=== PATIENT | female | born 1995 | race Caucasian/White ===

== ENCOUNTER 2019-10-20 05:01 | Emergency (ER) | payer OTHER ==
--- NOTE | 2019-10-20 05:34 | ED ---
URI HPI - General Chief Complaint: Upper Respiratory Infection Stated Complaint: coughing up blood Time Seen by Provider: 10/20/19 05:19 Source: patient Mode of arrival: ambulatory Limitations: no limitations - History of Present Illness Initial Comments: This patient is 24-year-old woman who presents to be evaluated for hemoptysis. The patient states that she "always has some congestion and cough," but that tonight she noticed that there was a slight tinge of blood with some sputum, that is otherwise clear to white. Patient denies fever or chills. No dyspnea. No chest pain. No leg pain or swelling. No history of blood clot. MD Complaint: cough, nasal congestion -: hour(s) Severity scale (1-10): 0 Improves With: nothing Worsens With: nothing Associated Symptoms: cough Treatments Prior to Arrival: none - Related Data Previous Rx's Medication Instructions Recorded Albuterol Inhaler [Ventolin Hfa 2 puff INHALATION RT-QID #1 inhaler 10/20/19 Inhaler] Allergies Allergy/AdvReac Type Severity Reaction Status Date / Time sumatriptan AdvReac Unknown Verified 10/20/19 06:28 Review of Systems ROS Statement: Those systems with pertinent positive or pertinent negative responses have been documented in the HPI. ROS Other: All systems not noted in ROS Statement are negative. Constitutional: Denies: fever, chills ENT: Reports: congestion. Denies: ear pain, throat pain Respiratory: Reports: cough, hemoptysis. Denies: dyspnea, wheezes Cardiovascular: Denies: chest pain, palpitations, edema, syncope Gastrointestinal: Denies: abdominal pain, nausea, vomiting Genitourinary: Denies: dysuria, hematuria Musculoskeletal: Denies: back pain Skin: Denies: rash Neurological: Denies: headache Past Medical History Additional Past Medical History / Comment(s): TBI, rapid heart rate History of Any Multi-Drug Resistant Organisms: None Reported Past Surgical History: No Surgical Hx Reported Past Psychological History: No Psychological Hx Reported Smoking Status: Never smoker Past Alcohol Use History: Rare Past Drug Use History: None Reported General Exam Limitations: no limitations General appearance: alert, in no apparent distress Head exam: Present: atraumatic, normocephalic Eye exam: Present: normal appearance. Absent: scleral icterus, conjunctival injection Neck exam: Present: normal inspection Respiratory exam: Present: wheezes. Absent: respiratory distress, rales, rhonchi, stridor, accessory muscle use, decreased breath sounds, prolonged expiratory Cardiovascular Exam: Present: normal rhythm, tachycardia (Rate 102 at my exam), normal heart sounds. Absent: systolic murmur, diastolic murmur, rubs, gallop GI/Abdominal exam: Present: soft. Absent: distended, tenderness, guarding, rebound, rigid, mass Extremities exam: Present: normal inspection, normal capillary refill. Absent: pedal edema, calf tenderness Back exam: Present: normal inspection. Absent: CVA tenderness (R), CVA tenderness (L) Neurological exam: Present: alert Skin exam: Present: warm, dry, intact, normal color. Absent: rash Course Vital Signs 10/20/19 10/20/19 05:06 06:31 Temperature 98.1 F 98.0 F Pulse Rate 129 H 96 Respiratory 17 18 Rate Blood Pressure 155/79 113/68 O2 Sat by Pulse 97 99 Oximetry Medical Decision Making - Lab Data Result diagrams: 10/20/19 05:20 10/20/19 05:20 Lab Results 10/20/19 10/20/19 10/20/19 Range/Units 05:20 05:20 05:20 WBC 12.3 H (3.8-10.6) k/uL RBC 4.21 (3.80-5.40) m/uL Hgb 13.1 (11.4-16.0) gm/dL Hct 40.1 (34.0-46.0) % MCV 95.1 (80.0-100.0) fL MCH 31.0 (25.0-35.0) pg MCHC 32.6 (31.0-37.0) g/dL RDW 12.3 (11.5-15.5) % Plt Count 348 (150-450) k/uL Neutrophils % 52 % Lymphocytes % 37 % Monocytes % 7 % Eosinophils % 1 % Basophils % 1 % Neutrophils # 6.3 (1.3-7.7) k/uL Lymphocytes # 4.5 (1.0-4.8) k/uL Monocytes # 0.9 (0-1.0) k/uL Eosinophils # 0.2 (0-0.7) k/uL Basophils # 0.1 (0-0.2) k/uL D-Dimer 0.33 (<0.60) mg/L FEU Sodium 140 (137-145) mmol/L Potassium 4.1 (3.5-5.1) mmol/L Chloride 106 (98-107) mmol/L Carbon Dioxide 22 (22-30) mmol/L Anion Gap 12 mmol/L BUN 10 (7-17) mg/dL Creatinine 0.75 (0.52-1.04) mg/dL Est GFR (CKD-EPI)AfAm >90 (>60 ml/min/1.73 sqM) Est GFR (CKD-EPI)NonAf >90 (>60 ml/min/1.73 sqM) Glucose 98 (74-99) mg/dL Calcium 9.4 (8.4-10.2) mg/dL Urine HCG, Qual (Not Detectd) 10/20/19 Range/Units 05:54 WBC (3.8-10.6) k/uL RBC (3.80-5.40) m/uL Hgb (11.4-16.0) gm/dL Hct (34.0-46.0) % MCV (80.0-100.0) fL MCH (25.0-35.0) pg MCHC (31.0-37.0) g/dL RDW (11.5-15.5) % Plt Count (150-450) k/uL Neutrophils % % Lymphocytes % % Monocytes % % Eosinophils % % Basophils % % Neutrophils # (1.3-7.7) k/uL Lymphocytes # (1.0-4.8) k/uL Monocytes # (0-1.0) k/uL Eosinophils # (0-0.7) k/uL Basophils # (0-0.2) k/uL D-Dimer (<0.60) mg/L FEU Sodium (137-145) mmol/L Potassium (3.5-5.1) mmol/L Chloride (98-107) mmol/L Carbon Dioxide (22-30) mmol/L Anion Gap mmol/L BUN (7-17) mg/dL Creatinine (0.52-1.04) mg/dL Est GFR (CKD-EPI)AfAm (>60 ml/min/1.73 sqM) Est GFR (CKD-EPI)NonAf (>60 ml/min/1.73 sqM) Glucose (74-99) mg/dL Calcium (8.4-10.2) mg/dL Urine HCG, Qual Not Detected (Not Detectd) - EKG Data -: EKG Interpreted by Me EKG shows normal: sinus rhythm, axis (Normal), intervals (Normal), QRS complexes (Normal), ST-T waves (Normal) Rate: tachycardia (Rate approximately 102 BPM) Disposition Clinical Impression: Bronchitis Disposition: HOME SELF-CARE Condition: Good Instructions (If sedation given, give patient instructions): Acute Bronchitis (ED) Prescriptions: Albuterol Inhaler [Ventolin Hfa Inhaler] 2 puff INHALATION RT-QID #1 inhaler Is patient prescribed a controlled substance at d/c from ED?: No Referrals: Lela Day DO [Primary Care Provider] - 1-2 days
[2019-10-20] MEDS ORDERED: ALBUTEROL NEBULIZED 2.5 MG/3 ML INHALATION ONE (06:21)
[2019-10-20 06:30] LABS: Basophils # (A) 0.1 k/uL (0-0.2); Basophils % (A) 1 %; Eosinophils # (A) 0.2 k/uL (0-0.7); Eosinophils % (A) 1 %; HCT 40.1 % (34.0-46.0); HGB 13.1 gm/dL (11.4-16.0); Lymphocytes # (A) 4.5 k/uL (1.0-4.8); Lymphocytes % (A) 37 %; MCHC 32.6 g/dL (31.0-37.0); MCV 95.1 fL (80.0-100.0); Mean Platelet Volume 8.4; Monocytes # (A) 0.9 k/uL (0-1.0); Monocytes % (A) 7 %; Neutrophils # (A) 6.3 k/uL (1.3-7.7); Neutrophils % (A) 52 %; Platelet Count 348 k/uL (150-450); RBC 4.21 m/uL (3.80-5.40); RDW 12.3 % (11.5-15.5); WBC 12.3 k/uL (3.8-10.6)
[2019-10-20 06:31] VITALS: BP 113/68; RESP 18; TEMP 98
--- NOTE | 2019-10-20 06:33 | XR ---
EXAM: XR Chest, 2 Views CLINICAL HISTORY: ITS.REASON XR Reason: hemoptysis TECHNIQUE: Frontal and lateral views of the chest. COMPARISON: No relevant prior studies available. FINDINGS: Lungs: Low lung volumes. Lungs appear clear. Pleural space: Unremarkable. No pneumothorax. Heart: Unremarkable. No cardiomegaly. Mediastinum: Unremarkable. Bones/joints: Unremarkable. IMPRESSION: No acute findings in the chest.
[2019-10-20 06:43] LABS: African American GFR (CKD) >90 (>60 ml/min/1.73 sqM); Anion Gap 12 mmol/L; Blood Urea Nitrogen 10 mg/dL (7-17); Calcium 9.4 mg/dL (8.4-10.2); Carbon Dioxide 22 mmol/L (22-30); Chloride 106 mmol/L (98-107); Glucose 98 mg/dL (74-99); Non-African American GFR(CKD) >90 (>60 ml/min/1.73 sqM); Potassium 4.1 mmol/L (3.5-5.1); Sodium 140 mmol/L (137-145)
[2019-10-20 07:00] VITALS: PULSE 82
== END 2019-10-20 07:06 | disposition home or self-care (01) ==
LOC: EC 05:01
DX: J40 Bronchitis, not specified as acute or chronic (principal); Z88.8 Allergy status to other drugs, medicaments and biological substances
CPT/HCPCS: 36415; 71046; 80048; 81025; 85025; 85379; 93005; 94640; 99284